=== PATIENT | female | born 1945 | race Caucasian/White ===

== ENCOUNTER 2017-08-14 15:06 | Day surgery (SDC) | payer OTHER ==
[2017-08-14] MEDS ORDERED: MIDAZOLAM 1 MG/ML 2 ML INJ ×3 (17:54→17:55)
[2017-08-14] MEDS ORDERED: FENTAnyl 50 MCG/ML VIAL (17:54)
== END 2017-08-14 18:58 | disposition home or self-care (01) ==
LOC: GIL 15:06
DX: Z12.11 Encounter for screening for malignant neoplasm of colon (principal); K29.30 Chronic superficial gastritis without bleeding; K29.60 Other gastritis without bleeding; K64.8 Other hemorrhoids
CPT/HCPCS: 43239; 88305; 88312